=== PATIENT | female | born 1990 ===

== ENCOUNTER 2018-05-28 08:15 | Outpatient (CLI) | payer OTHER | END 2018-05-28 08:18 | disposition home or self-care (01) | LOC: SONOGRAMA 08:15 | DX: E04.1 Nontoxic single thyroid nodule (principal) ==

== ENCOUNTER 2023-05-19 14:55 | Outpatient (CLI) | payer OTHER | END 2023-05-19 14:58 | disposition home or self-care (01) | LOC: SONOGRAMA 14:55 | PROVIDERS: ATTEND Pathology Anatomic Pathology & Clinical Pathology | DX: E04.2 Nontoxic multinodular goiter (principal); D34 Benign neoplasm of thyroid gland ==